=== PATIENT | female | born 1995 | race American Indian/Alaskan Native ===

== ENCOUNTER 2016-10-04 08:50 | Inpatient (IN) | payer OTHER ==
[2016-10-04] MEDS ORDERED: fentaNYL 100 MCG/2 ML SDV IVPUSH PRN (11:36)
[2016-10-04] MEDS ORDERED: Methylergonovine 0.2 MG/1 ML Amp IM PRN (11:36)
[2016-10-04] MEDS ORDERED: Sodium Chloride 0.9% 10 ML Syringe FLUSH PRN (11:36)
[2016-10-04] MEDS ORDERED: Acetaminophen 325 MG Tab PO PRN (11:36)
[2016-10-04] MEDS ORDERED: Nalbuphine 10 MG/1 ML Vial IM PRN (11:36)
[2016-10-04] MEDS ORDERED: Lactated Ringers 500 ML IV ONE (11:36)
[2016-10-04] MEDS ORDERED: Carboprost Tromethamine 250 MCG/1 ML Amp IM PRN (11:36)
[2016-10-04] MEDS ORDERED: Lidocaine 1% 30 ML SDV INJECT PRN (11:36)
[2016-10-04] MEDS ORDERED: Ondansetron 4 MG/2 ML SDV IV PRN (11:36)
[2016-10-04] MEDS ORDERED: Misoprostol 400 MCG (4 X 100 MCG TAB) RECTAL PRN (11:36)
[2016-10-04] MEDS ORDERED: Lactated Ringers 1,000 ML IV SCH (11:45)
[2016-10-04] MEDS ORDERED: Oxytocin/Normal Saline 30 UNIT/500 ML BAG IV SCH ×2 (12:20→14:20)
[2016-10-04] MEDS ORDERED: fentaNYL 100 MCG/2 ML SDV ONE (12:57)
--- NOTE | 2016-10-04 13:24 | PCM.PREANE ---
Preanesthetic Assessment - Procedure Proposed Procedure: Term in labor requesting Intrathecal narcotic for pain - Anesthesia/Transfusion/Family Hx Anesthesia History: No Prior Anesthesia Family History of Anesthesia Reaction: No Transfusion History: No Prior Transfusion(s) Intubation History: Unknown - Review of Systems General: No Symptoms Pulmonary: No Symptoms Cardiovascular: No Symptoms Gastrointestinal: No symptoms Neurological: No Symptoms Other: Reports: None - Physical Assessment NPO Status Date: 10/04/16 NPO Status Time: 12:00 Pulse: 81 O2 Sat by Pulse Oximetry: 98 Respiratory Rate: 14 Blood Pressure: 98/54 Temperature: 97.2 F Vital Signs: Last Vital Signs Temp 98.2 F 10/04/16 10:21 Pulse Resp BP Pulse Ox Height: 1.52 m Weight: 50.802 kg ASA Class: 2 Mental Status: Alert & Oriented x3 Airway Class: Mallampati = 2 Dentition: Reports: Normal Dentition Thyro-Mental Finger Breadths: 3 Mouth Opening Finger Breadths: 3 ROM/Head Extension: Full Lungs: Clear to auscultation, Normal respiratory effort Cardiovascular: Regular Rate, Regular Rhythm - Allergies Allergies/Adverse Reactions: Allergies Allergy/AdvReac Type Severity Reaction Status Date / Time No Known Allergies Allergy Verified 10/21/15 00:24 - Blood Blood Available: No Product(s) Available: None - Anesthesia Plan Pre-Op Medication Ordered: None - Acknowledgements Anesthesia Type Planned: Spinal Pt an Appropriate Candidate for the Planned Anesthesia: Yes Alternatives and Risks of Anesthesia Discussed w Pt/Guardian: Yes Pt/Guardian Understands and Agrees with Anesthesia Plan: Yes Additional Comments: Patient ID's Chart Reviewed. R/B of Intrathecal narcotic is discussed with patient and agreed. Consent is signed. 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 [No Known Home Meds] 07/24/14 [History] . [No Known Home Meds] 10/21/15 [History] - CURRENT (IN HOUSE) MEDS Current Meds: Current Medications Acetaminophen (Tylenol) 650 mg PO Q4H PRN PRN Reason: Pain (Mild 1-3) and fever Carboprost Tromethamine (Hemabate Ds) 250 mcg IM ASDIRECTED PRN PRN Reason: HEMORRHAGE Fentanyl (Sublimaze) 50 mcg IVPUSH Q1H PRN PRN Reason: Pain (moderate 4-6) Lactated Ringer's (Ringers, Lactated) 1,000 mls @ 125 mls/hr IV ASDIRECTED RITU Oxytocin/Sodium Chloride (Pitocin In Ns 30 Unit/500 Ml) 30 unit in 500 mls @ 500 mls/hr IV TITRATE RITU; 500 MUNITS/MIN PRN Reason: Protocol Lidocaine HCl (Xylocaine-Mpf 1%) 10 ml INJECT ASDIRECTED PRN PRN Reason: Perineal Repair Methylergonovine Maleate (Methergine) 0.2 mg IM ASDIRECTED PRN PRN Reason: Hemorrhage Misoprostol (Cytotec) 800 mcg RECTAL ASDIRECTED PRN PRN Reason: Hemorrhage Nalbuphine HCl (Nubain) 20 mg IM ONETIME PRN PRN Reason: Abdominal Pain Ondansetron HCl (Zofran) 4 mg IV Q4H PRN PRN Reason: Nausea/Vomiting Last Admin: 10/04/16 12:51 Dose: 4 mg Sodium Chloride (Saline Flush) 10 ml FLUSH ASDIRECTED PRN PRN Reason: Keep Vein Open Discontinued Medications Fentanyl (Sublimaze) Confirm Administered Dose 100 mcg .ROUTE .STK-MED ONE Stop: 10/04/16 12:58 Lactated Ringer's (Ringers, Lactated) 500 mls @ 999 mls/hr IV .BOLUS ONE Stop: 10/04/16 12:06 Last Admin: 10/04/16 12:32 Dose: 999 mls/hr Sufentanil Citrate (Sufenta) Confirm Administered Dose 50 mcg .ROUTE .STK-MED ONE Stop: 10/04/16 12:58
--- NOTE | 2016-10-04 13:29 | PCM.PRNOTE ---
- Free Text/Narrative Note: Patient ID'd in sitting position L3-4 inner space identified, Sterile prep with Betadine and draped, Skin wheel with 1% lidocaine. 24 G pencan spinal needle advanced into SA space via an 18 G introducer. No blood/parasthesia positive CSF, 6 mg hyperbaric Marcaine + 20 mcg sufentanyl + 30 mcg fentanyl + epinepherine wash + 1.3 ml Preservative free normal saline injected into SA space + swirl x 2. Immediate pain relief is experienced by patient, BP 98/54, HR 81, SpO2 99 on RA, T 97.3 RR 14. Level T8 bilateral with 0 pain score reported by patient.
--- NOTE | 2016-10-04 15:42 | HP ---
CHIEF COMPLAINT: Increased force and frequency of contractions. HISTORY OF PRESENT ILLNESS: The patient is a 21-year-old, 2, para 0-0-1 - 0, currently at 38 and 6/7th weeks of her based on last menstrual period and 8-week ultrasound. Reports contractions pretty much all day yesterday that worsened sometime during the night, and she came in this morning because of some light spotting and continued strong contractions. course has been complicated by first-trimester subchorionic bleed and history of miscarriage x1. Otherwise, fairly unremarkable. The patient has not had any leakage of fluid. She has had only a small amount of spotting. movement has been good. No fever or chills. No chest pain. No shortness of breath. No symptoms of preeclampsia, and generally reports that she is doing well. LABORATORY DATA: Blood type A negative. Antibody screen negative. Rubella nonimmune. RPR nonreactive. Urine culture was negative at 2 days of growth. Hepatitis B negative. HIV negative. Gonorrhea and chlamydia negative. TSH normal. Hepatitis C negative. Wet prep negative. GBS negative. Most recent hemoglobin 11.4 on 07/22/2016. She has had some heartburn in the third trimester and using Zantac for that. She did have her RhoGAM and Tdap vaccinations. The subchorionic hemorrhage resolved without any external bleeding. PAST MEDICAL HISTORY: Body piercing of the belly, tongue, and ears. Intermittent headaches. Menarche at age 13, every 28 days with 3 to 4 days of flow. A history of substance abuse with inpatient treatment and self injury. History of tattoos x3. No IV drug use or blood transfusions. FAMILY HISTORY: Mother and father reportedly alive and well. Sister had a history of intrahepatic cholestasis of . Maternal grandfather with bone cancer and hypertension. Paternal grandmother with hypertension. Paternal grandfather with diabetes, heart attack, and hypertension. Maternal grandmother had a history of having twins and hypertension. Otherwise, family history negative for defects, anesthesia problems, bleeding or clotting disorders, cystic fibrosis and seizures. SOCIAL HISTORY: The patient is single and working at the [employer]. She is a former smoker. Reports alcohol use every once in a while but none during . No indoor pets but she does have a horse. The father of this baby is Matty Esteban Irons. He is reportedly healthy, and this will be his first child as well, he is not involved. MEDICATIONS: vitamin 1 daily, also ranitidine as needed for heartburn. ALLERGIES: No known drug allergies. REVIEW OF SYSTEMS: As per the history of present illness. No headaches, blurry vision, chest pain, shortness of breath, right upper quadrant pain, or increased swelling. No dysuria, constipation, diarrhea, nausea or vomiting, or skin changes. No musculoskeletal complaints other than some mild back pain, so generally negative. PHYSICAL EXAMINATION: General: Tolerating her contractions well. Vital Signs: Blood pressure 113/77, pulse 107, respiratory rate of 18, and she is afebrile. HEENT: Unremarkable. Heart: Regular without obvious murmur. Lungs: Clear to auscultation bilaterally. Abdomen: Gravid. Soft, nontender. Baby is head down. TOCO shows contractions every 2 to 3 minutes sometimes with tripling. heart tones 150 beats per minute at baseline. Moderate [id number] variability. Accelerations noted. Cervix: Per nurse's exam, 2.5 cm, 75%, and vertex. About an hour and a half after that first check, she was 3 cm and 80% effaced. Artificial rupture of membranes performed with return of clear fluid. Extremities: No edema, erythema, or tenderness noted. Skin: Warm, dry, and appropriate for race without rash. Psychiatric: Appropriate for situation and circumstances. ASSESSMENT: 1. Active stage I labor, status post artificial rupture at 11:30 a.m. 2. A 38 and 6/7th weeks by last menstrual period and 8-week ultrasound. 3. 2, para 0-0-1-0. 4. Blood type A negative. 5. Rubella nonimmune. 6. Group B streptococcus negative. 7. Heartburn in the third trimester. 8. History of first trimester subchorionic bleed. 9. Needle phobia. 10.Intermittent headaches. 11.History of x1. PLAN: Anticipate active labor management and anticipate vaginal delivery, however, pending clinical course. Changes may be made if necessary. [facility] /[id number] [facility]
[2016-10-04] MEDS ORDERED: Simethicone 80 MG Tab.Chew PO PRN (18:14)
[2016-10-04] MEDS ORDERED: Measles, Mumps & Rubella Vaccine 0.5 ML SDV SUBCUT ONE (18:14)
[2016-10-04] MEDS ORDERED: Benzocaine/Menthol 20%-0.5% Spray 56 GM Canister TOP PRN (18:14)
[2016-10-04] MEDS: Ibuprofen 800 MG Tab PO PRN (19:54)
[2016-10-04] MEDS: Acetaminophen/HYDROcodone 325-10 MG Tab PO PRN (20:46)
[2016-10-05] MEDS: Acetaminophen/HYDROcodone 325-10 MG Tab PO PRN ×2 (01:01→05:42)
--- NOTE | 2016-10-05 03:49 | DEL ---
DATE: 10/04/2016 PRE-PROCEDURE DIAGNOSES: 1. A 38-6/7th weeks' intrauterine by last menstrual period and 8- week ultrasound. 2. 2 para 0-0-1-0. 3. Blood type A negative. 4. Rubella nonimmune. 5. Group B Streptococcus negative. 6. History of first trimester subchorionic bleed. 7. History of spontaneous x1. 8. Intermittent headaches. 9. Heartburn of . 10.Needle phobia. POSTPROCEDURE DIAGNOSES: 1. Status post spontaneous vaginal delivery, viable male . 2. Bilateral labia minora laceration and first-degree lacerations, repaired without complications. 3. Intrapartum hemorrhage with an estimated blood loss of 500. BRIEF HISTORY: The patient is a 21-year-old, with the above-listed diagnoses, who presented this morning with onset of spontaneous labor. Artificial rupture of membranes performed at 3 cm dilated and intrathecal placed shortly thereafter for pain control. Her contractions however spaced out, and augmentation with Pitocin was performed. After approximately 6 hours of stage I, she pushed for 31 minutes and had a successful vaginal delivery. See admission history and physical for full details. With artificial rupture of membranes, amniotic fluid was noted to be clear. PROCEDURE DETAIL: With the patient in the dorsal lithotomy position, she delivered a viable male infant in DOUG position over intact perineum. The was dried and stimulated. Mouth and nose were bulb suctioned. Baby was placed up on mother's abdomen. After 45 seconds to 1 minute, umbilical cord was doubly clamped and then cut and cord blood sample obtained. Placenta then delivered by gentle cord traction and concomitant uterine massage, inspected and intact, was noted to have a small area of calcification consistent with prior subchorionic bleed. Labia, vagina, and cervix were inspected, and she was noted to have 2 small labia minora lacerations and 1 superficial first-degree perineal laceration, all of which were repaired in a simple running fashion with 4-0 Vicryl without complications. The patient tolerated procedure well. ESTIMATED BLOOD LOSS: 500 mL. COMPLICATIONS: None. FINDINGS: Viable male , weight 2915 grams, 6# 7oz, scores of 8&9. DISPOSITION: Mother and baby to stay together in the room at this time. STEVE /[id number] MTDD
[2016-10-05] MEDS: Ibuprofen 800 MG Tab PO PRN ×2 (03:50→16:29)
--- NOTE | 2016-10-05 06:49 | PCM.POSTAN ---
POST ANESTHESIA ASSESSMENT - MENTAL STATUS Mental Status: alert, oriented - VITAL SIGNS Pulse Rate: 68 SaO2: 99 Resp Rate: 18 Blood Pressure: 120/62 Temperature: 97.1 F - RESPIRATORY Respiratory Status: respiratory rate WNL, airway patent, O2 saturation stable - CARDIOVASCULAR CV Status: pulse rate WNL, blood pressure stable - GASTROINTESTINAL GI Status: no symptoms - PAIN Pain Score: 0 - POST OP HYDRATION Hydration Status: adequate & stable (regained full control of her lower extremities. Ambulating without any issue. Pleased with her anesthesia plan of care.)
[2016-10-05] MEDS: Docusate Sodium 100 MG Cap PO PRN ×2 (08:33→21:40)
[2016-10-05] MEDS: Ferrous Sulfate 325 MG Tab PO SCH (08:33)
[2016-10-05] MEDS: Prenatal Multivitamin with Calcium/Folic Acid/Iron Tab PO SCH (08:33)
[2016-10-05] MEDS ORDERED: fentaNYL 100 MCG/2 ML SDV ITHECAL ONE (10:17)
--- NOTE | 2016-10-05 14:23 | PN ---
DATE: 10/05/2016 SUBJECTIVE: day #1, status post spontaneous vaginal delivery, doing well, ambulating, tolerating regular diet, voiding without difficulties. She has not yet had a bowel movement, is passing flatus. No chest pain or shortness of breath. No symptoms of preeclampsia. No symptoms of infection. Bleeding has been minimal. No other acute concerns. Bottle feeding her baby. OBJECTIVE: General: A healthy, well-appearing 21-year-old female. Vital Signs: Temperature is 97.9; pulse 82; blood pressure 83/64, baseline low 100s over 50s; O2 saturations 100% on room air with a respiratory rate of 18. Heart: Regular without murmur. Lungs: Clear bilaterally with good chest expansion. Abdomen: Soft and nontender. Fundus firm and below the umbilicus. Extremities: No edema, erythema, or tenderness noted. LABORATORY DATA: Shows today's hemoglobin 8.4, down from a previous 9.6. Mild elevation of the white blood cell count to 26,000. ASSESSMENT: 1. Status post spontaneous vaginal delivery day #1. 2. 2, now para 1-0-1-1. 3. Blood type A negative. Baby's blood type O positive. The patient will receive RhoGAM. 4. Rubella nonimmune. The patient received MMR vaccine. 5. History of spontaneous x1. 6. Anemia of and acute blood loss. PLAN: Continue routine cares. Anticipate discharge home tomorrow as long as all continues to go well. The patient's questions have been answered. [facility] /[id number]
[2016-10-06] MEDS: Ibuprofen 800 MG Tab PO PRN ×2 (00:32→12:39)
[2016-10-06 07:23] VITALS: BP 90/56
[2016-10-06] MEDS: Ferrous Sulfate 325 MG Tab PO SCH (08:06)
[2016-10-06] MEDS: Prenatal Multivitamin with Calcium/Folic Acid/Iron Tab PO SCH (08:06)
[2016-10-06] MEDS: Acetaminophen/HYDROcodone 325-10 MG Tab PO PRN ×2 (08:06→12:39)
--- NOTE | 2016-10-06 12:56 | DISCH ---
ADMITTING DIAGNOSES: 1. 38 and 6/7th weeks based on last menstrual period and 8 week ultrasound. 2. 2 para 0-0-1-0. 3. Blood type A negative. 4. Rubella nonimmune. 5. Group B strep negative. 6. Heartburn in the third trimester. 7. History of first trimester subchorionic bleed. 8. Needle phobia. 9. History of spontaneous x1. 10.Frequent headaches. DISCHARGE DIAGNOSES: 1. 38 and 6/7th weeks based on last menstrual period and 8 week ultrasound. 2. 2 now para 1-0-1-1. 3. Blood type A negative. 4. Rubella nonimmune. 5. Group B strep negative. 6. Heartburn in the third trimester. 7. History of first trimester subchorionic bleed. 8. Needle phobia. 9. History of spontaneous x1. 10.Frequent headaches. 11.Status post spontaneous vaginal delivery. 12.Status post immunization of RhoGAM. 13.Status post immunization with MMR vaccine. BRIEF HISTORY: A 21-year-old female, who presented to the hospital with spontaneous onset of labor. After 6 hours in stage I and 31 minute of pushing, she had a successful uncomplicated vaginal delivery of a viable male , weighing 2915 g, 6 pounds 7 ounces. scores of 8 and 9. She has done well since time of delivery. Please see admission history and physical and delivery notes for full details. HOSPITAL COURSE: Good since time of delivery. She has been able to ambulate, tolerate regular diet, voiding without difficulties, passing flatus. No chest pain or shortness of breath. No symptoms of preeclampsia or symptoms of infection. Bleeding has been minimal and she denies other acute concerns. OBJECTIVE: Vital Signs: Temperature is 96.9, pulse of 75, blood pressure 90/56, respiratory rate of 18, O2 saturations 96% on room air. Heart: Regular without murmur. Lungs: Clear to auscultation bilaterally. Abdomen: Soft, nontender. Fundus firm and below the umbilicus. Extremities: No edema, erythema, or tenderness noted. LABORATORY DATA: Admission hemoglobin of 9.8, discharge hemoglobin of 9.1, white blood cell count currently 19.9 which has decreased from 26.1 yesterday. Platelets are normal. No signs of maternal- hemorrhage. Baby's blood type is O positive, which is why she was given a RhoGAM. DISPOSITION: Home with family. MEDICATIONS: 1. Tylenol 650 mg every 6 hours as needed. 2. Ibuprofen 600 mg every 6 hours as needed. 3. Colace 100 mg twice daily as needed for constipation. 4. Iron 325 mg twice daily for 1 month. INSTRUCTIONS: Routine post vaginal delivery instructions provided including to come in if she has any increased pelvic pain, fever, chills, foul-smelling drainage, discharge, increased bleeding, or other acute concerns. Her questions have been answered. FOLLOWUP: 6-week exam will be set up in the clinic. [facility] /[id number]
== END 2016-10-06 14:15 | disposition home or self-care (01) | DRG 775 ==
LOC: DL.OBCHECK 08:50 → DL.OB 11:30 → OBSVTOIN 17:42
PROVIDERS: ADMIT Family Medicine; ATTEND Family Medicine
PROC: 10E0XZZ Delivery of Products of Conception, External Approach (ICD-10-PCS; principal; 2016-10-04)
PROC: 0UQMXZZ Repair Vulva, External Approach (ICD-10-PCS; 2016-10-04)
PROC: 0HQ9XZZ Repair Perineum Skin, External Approach (ICD-10-PCS; 2016-10-04)
PROC: 10907ZC Drainage of Amniotic Fluid, Therapeutic from Products of Conception, Via Natural or Artificial Opening (ICD-10-PCS; 2016-10-04)
PROC: 00HU33Z Insertion of Infusion Device into Spinal Canal, Percutaneous Approach (ICD-10-PCS; 2016-10-04)
PROC: 3E0R3CZ (ICD-10-PCS; 2016-10-04)
DX: O70.0 First degree perineal laceration during delivery (principal); D62 Acute posthemorrhagic anemia; O99.02 Anemia complicating childbirth; D64.89 Other specified anemias; Z3A.39 39 weeks gestation of pregnancy; Z37.0 Single live birth
CPT/HCPCS: 36415; 85025; 85027; 85461; 86850; 86900; 86901; 90707; A9270-GY; J2405; J2590; J2790; J3010; J7120

== ENCOUNTER 2016-11-18 15:43 | Emergency (ER) | payer OTHER ==
[2016-11-18 15:51] VITALS: BP 112/62
[2016-11-18] MEDS ORDERED: predniSONE 20 MG Tab PO ONE (16:45)
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
== END 2016-11-18 16:57 | disposition home or self-care (01) ==
LOC: DL.ED 15:43
DX: L23.7 Allergic contact dermatitis due to plants, except food (principal); F17.210 Nicotine dependence, cigarettes, uncomplicated
CPT/HCPCS: 99282; A9270

== ENCOUNTER 2016-12-27 21:35 | Emergency (ER) | payer OTHER ==
[2016-12-27 21:55] VITALS: BP 115/66
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
== END 2016-12-27 23:34 | disposition home or self-care (01) ==
LOC: DL.ED 21:35
DX: S06.0X0A Concussion without loss of consciousness, initial encounter (principal); S01.01XA Laceration without foreign body of scalp, initial encounter; F41.9 Anxiety disorder, unspecified; F17.210 Nicotine dependence, cigarettes, uncomplicated; W19.XXXA Unspecified fall, initial encounter
CPT/HCPCS: 70450; 81001; 81025; 87086; 87088; 87186; 99284

== ENCOUNTER 2020-06-26 16:49 | Observation (INO) | payer BC ==
[2020-06-26] MEDS ORDERED: Ondansetron 4 MG/2 ML SDV IVPUSH PRN (17:02)
[2020-06-26] MEDS ORDERED: Acetaminophen/HYDROcodone 325-5 MG Tab PO PRN (17:07)
[2020-06-26] MEDS ORDERED: Gentamicin 40 MG/ML 2 ML Vial IV SCH (17:15)
[2020-06-26 17:41] LABS: ANION GAP 17.8 mEq/L (7-13); CHLORIDE,CL 103 mmol/L (98-107); SODIUM,NA 139 mmol/L (136-145)
[2020-06-26] MEDS: Lactated Ringers 1,000 ML IV SCH (18:13)
[2020-06-26] MEDS: Acetaminophen 325 MG Tab PO PRN (18:17)
[2020-06-26] MEDS: Ferrous Sulfate 325 MG Tab PO SCH (18:42)
[2020-06-26] MEDS: Ampicillin 1 GM in Sodium Chloride 0.9% 100 ML IV SCH (20:39)
[2020-06-26] MEDS: Sodium Chloride 0.9% 10 ML Syringe FLUSH PRN (20:39)
[2020-06-27] MEDS: Sodium Chloride 0.9% 10 ML Syringe FLUSH PRN ×3 (00:33→06:10)
[2020-06-27] MEDS: Ampicillin 1 GM in Sodium Chloride 0.9% 100 ML IV SCH ×4 (00:33→17:00)
[2020-06-27] MEDS: Acetaminophen 325 MG Tab PO PRN (01:42)
[2020-06-27] MEDS: Lactated Ringers 1,000 ML IV SCH (06:59)
[2020-06-27] MEDS ORDERED: Prenatal Multivitamin with Calcium/Folic Acid/Iron Tab PO SCH (08:00)
[2020-06-27] MEDS: Ferrous Sulfate 325 MG Tab PO SCH ×2 (08:23→17:29)
[2020-06-27 17:18] VITALS: BP 112/70; PULSE 74
--- NOTE | 2020-07-04 07:39 | DISCH ---
ADMITTING DIAGNOSES: 1. Pyelonephritis affecting in the 3rd trimester. 2. Anomaly of the heart. 3. Abnormal quad screen. 4. Smoking within the past year. 5. Two prior miscarriages. 6. Gestational proteinuria. 7. Anemia of . 8. Coronavirus disease 2019 affecting in January and recurrent positive upon admission. 9. Vitamin D deficiency. 10.History of depression. 11.High-risk in the 3rd trimester. BRIEF HISTORY: A 25-year-old 5, para 2-0-2-2, who presented to the clinic with urinary tract infection complaints and was ultimately diagnosed with pyelonephritis. Diagnosis was complicated by the fact that she had an outside urinalysis that was positive and she was started on Keflex on 06/24/2020, but developed hives and was switched to Augmentin. However, she did not take the Augmentin for fear of possible allergic reaction and her symptoms became worse. No fever, chills. No nausea or vomiting. However, with the antibiotic failures and the severity of her symptoms where she could not even sit on the examination table were concerning. Therefore, she was admitted to the hospital for further observation, pain management, and IV antibiotics. HOSPITAL COURSE: Has been good. The patient has tolerated her antibiotics well. Back pain has been controlled with Tylenol. She preferred not to take the hydrocodone that was made available to her. She did make use of heating pad. Upon admission, she did have a positive COVID test, but she was asymptomatic from that standpoint, and once the urinary tract infection symptoms were feeling better, we felt it was safe for her to be discharged home. DISCHARGE CONDITION: Good. PHYSICAL EXAMINATION: Vital Signs: Temperature is 98.6, pulse 74, blood pressure 112/70, respiratory rate of 16, and O2 saturations 98% on room air. Heart: Regular without murmur. Lungs: Clear to auscultation bilaterally. Abdomen: Gravid, soft, nontender. Positive bowel sounds. NSTs have all been category 1 without significant contractions. Extremities: No edema, erythema, or tenderness noted. LABORATORY DATA: White blood cell count was only 9.9, platelets are normal at 251. Chemistry remarkable for a low calcium of 8.4 and low albumin of 2.7. COVID positive RNA swab. Urinalysis at the clinic was overall unremarkable, but it was noted the patient had previous positive urinalysis and cultures at an outside facility and those results were not available to me. DISPOSITION: Home with family. MEDICATIONS: She is to go ahead and fill her Augmentin prescription and complete the 10-day course of that. Otherwise, vitamin 1 p.o. daily, calcium carbonate as needed for acid reflux, Pepcid 20 mg twice daily as needed for acid reflux, and Tylenol 1000 mg every 6 hours as needed for pain. FOLLOWUP: She should keep her routine OB followup appointments as she has scheduled, and will see her back if needed should any problems or concerns arise. She is scheduled for induction on 07/06/2020, in [place] so that they can perform the baby's echocardiogram within 24 to 48 hours of life and will continue that plan. She does have a history of rapid delivery, so if she does go into labor, she may end up coming to deliver at our local hospital and then we can DICTATION ENDS HERE. [facility] /[id number]
== END 2020-06-27 18:15 | disposition home or self-care (01) ==
LOC: DL.MS 16:49
PROVIDERS: ADMIT Family Medicine; ATTEND Family Medicine
DX: O98.513 Other viral diseases complicating pregnancy, third trimester (principal); U07.1 COVID-19; O23.03 Infections of kidney in pregnancy, third trimester; N12 Tubulo-interstitial nephritis, not specified as acute or chronic; O26.893 Other specified pregnancy related conditions, third trimester; O09.893 Supervision of other high risk pregnancies, third trimester; F33.2 Major depressive disorder, recurrent severe without psychotic features; E55.9 Vitamin D deficiency, unspecified; O99.013 Anemia complicating pregnancy, third trimester; O12.13 Gestational proteinuria, third trimester; O35.8XX0 Maternal care for other (suspected) fetal abnormality and damage, not applicable or unspecified; Z87.891 Personal history of nicotine dependence; Z3A.36 36 weeks gestation of pregnancy
CPT/HCPCS: 36415; 59025; 80053; 85025; 87635; 96365; 96366; 96367; 96376; A9270; G0378; J0290; J1580; J7120; U0002

== ENCOUNTER 2021-11-17 23:14 | Emergency (ER) | payer BC ==
[2021-11-17 23:41] VITALS: BP 120/88
[2021-11-17] MEDS: Sodium Chloride 0.9% 1,000 ML IV ONE (23:54)
[2021-11-17] MEDS: Ketorolac 30 MG/ML SDV IVPUSH ONE (23:55)
[2021-11-17] MEDS: Ondansetron 4 MG/2 ML SDV IVPUSH ONE (23:56)
[2021-11-17] MEDS: diphenhydrAMINE 50 MG/ML SDV IVPUSH ONE (23:57)
[2021-11-18 00:32] VITALS: PULSE 70
== END 2021-11-18 00:32 | disposition home or self-care (01) ==
LOC: DL.ED 23:14
DX: G43.909 Migraine, unspecified, not intractable, without status migrainosus (principal); Z88.1 Allergy status to other antibiotic agents; Z86.16 Personal history of COVID-19; Z20.822 Contact with and (suspected) exposure to COVID-19
CPT/HCPCS: 81001; 96361; 96374; 96375; 99282; 99284-25; J1200; J1885; J2405; J7030; U0002

== ENCOUNTER 2021-11-20 10:24 | Emergency (ER) | payer BC ==
[2021-11-20 10:39] VITALS: BP 123/90; PULSE 79
[2021-11-20] MEDS ORDERED: Sodium Chloride 0.9% 10 ML Syringe FLUSH PRN (11:03)
[2021-11-20] MEDS ORDERED: Sodium Chloride 0.9% 1,000 ML IV ONE (11:04)
[2021-11-20] MEDS ORDERED: Lidocaine 1% 5 ML VIAL INJECT ONE (11:08)
[2021-11-20] MEDS ORDERED: Metoclopramide 10 MG/2 ML SDV IVPUSH ONE (11:08)
[2021-11-20] MEDS ORDERED: Ketorolac 30 MG/ML SDV IVPUSH ONE (11:08)
[2021-11-20] MEDS ORDERED: Dexamethasone 4 MG/ML SDV IVPUSH ONE (13:02)
== END 2021-11-20 13:37 | disposition home or self-care (01) ==
LOC: DL.ED 10:24
DX: G43.809 Other migraine, not intractable, without status migrainosus (principal); F17.210 Nicotine dependence, cigarettes, uncomplicated; Z88.1 Allergy status to other antibiotic agents; Z86.16 Personal history of COVID-19
CPT/HCPCS: 36415; 70450; 80053; 84443; 85025; 96361; 96374; 96375; 99283; 99284-25; J1100; J1885; J2765; J3490; J7030

== ENCOUNTER 2023-07-19 10:46 | Emergency (ER) | payer BC, OTHER ==
[2023-07-19 11:01] VITALS: BP 126/86; PULSE 135
[2023-07-19 11:39] LABS: BASOPHILS PERCENT AUTO 0.1 % (0.0-1.0); EOSINOPHILS PERCENT AUTO 0.6 % (1.0-3.0); HEMATOCRIT 43.1 % (37.0-47.0); HEMOGLOBIN 14.6 g/dL (12.0-16.0); LYMPHOCYTES PERCENT AUTO 9.9 % (20.5-50.1); MEAN CORPUSCULAR HEMOGLOBIN 30.3 pg (27.0-34.0); MEAN CORPUSCULAR HGB CONC 33.9 g/dL (33.0-35.0); MEAN CORPUSCULAR VOLUME 89.4 fL (80-100); MONOCYTES PERCENT AUTO 8.1 % (2-8); NEUTROPHILS PERCENT AUTO 81.3 % (42.2-75.2); PLATELET COUNT,PLT 262 10^3/uL (150-450); RED BLOOD CELL COUNT 4.82 10^6/uL (4.2-5.4); WHITE BLOOD CELL COUNT,WBC 16.3 10^3/uL (5.0-10.0)
[2023-07-19] MEDS: Sodium Chloride 0.9% 1,000 ML IV ONE (11:39)
[2023-07-19] MEDS: Ondansetron 4 MG/2 ML SDV IVPUSH ONE (11:40)
[2023-07-19] MEDS: Ketorolac 30 MG/ML SDV IVPUSH ONE (11:40)
[2023-07-19 11:50] LABS: POTASSIUM,K 3.8 mmol/L (3.5-5.1); SODIUM,NA 138 mmol/L (136-145)
[2023-07-19 12:01] LABS: LACTIC ACID 1.8 mmol/L (0.4-2.0)
[2023-07-19 12:08] LABS: A/G RATIO 1.2; ALANINE AMINOTRANSFERASE,ALT 23 U/L (14-59); ALBUMIN 4.4 g/dL (3.4-5.0); ALKALINE PHOSPHATASE 91 U/L (46-116); ANION GAP 15.8 mEq/L (7-13); ASPARTATE AMNIOTRANSFERASE,AST 9 U/L (15-37); BILIRUBIN TOTAL 0.3 mg/dL (0.2-1.0); BLOOD UREA NITROGEN,BUN 9 mg/dL (7-18); BUN/CREATININE RATIO 14.1 (No establ ref range); CALCIUM 9.2 mg/dL (8.5-10.1); CARBON DIOXIDE,CO2 24 mmol/L (21-32); CHLORIDE,CL 102 mmol/L (98-107); CREATININE 0.64 mg/dL (0.55-1.02); EST CRCL DRUG DOSING (CG) 97.87 mL/min; GLUCOSE RANDOM 98 mg/dL (70-99); LIPASE 29 U/L (16-77); PROTEIN TOTAL,TP 8.1 g/dL (6.4-8.2)
[2023-07-19 12:09] LABS: ESTIMATED GFR 123 mL/min (>=60)
[2023-07-19 12:20] LABS: HCG QUALITATIVE,SERUM NEGATIVE (NEGATIVE)
[2023-07-19] MEDS: Iopamidol 612 MG/ML 100 ML Bottle IVPUSH ONE (12:59)
[2023-07-19] MEDS: GI Cocktail Oral Solution 30 ML PO ONE (13:50)
== END 2023-07-19 14:49 | disposition home or self-care (01) ==
LOC: DL.ED 10:46
DX: R10.13 Epigastric pain (principal); R19.7 Diarrhea, unspecified; R10.11 Right upper quadrant pain; R10.31 Right lower quadrant pain; F17.210 Nicotine dependence, cigarettes, uncomplicated; Z88.1 Allergy status to other antibiotic agents; Z86.16 Personal history of COVID-19
CPT/HCPCS: 36415; 74177; 80053; 83605; 83690; 84703; 85025; 96361; 96374; 96375; 99284; A9270; J1885; J2405; J7030; Q9967

== ENCOUNTER 2024-12-16 17:40 | Emergency (ER) | payer BC, OTHER ==
[2024-12-16] MEDS: Take Home: Amoxicillin 500 MG, 6 Cap Pack PO ONE (18:35)
[2024-12-16] MEDS: Dexamethasone 4 MG/ML SDV IM ONE (18:35)
[2024-12-16 18:42] VITALS: BP 120/70; PULSE 120
== END 2024-12-16 18:39 | disposition home or self-care (01) ==
LOC: DL.ED 17:40
DX: J02.0 Streptococcal pharyngitis (principal); Z88.1 Allergy status to other antibiotic agents; Z79.899 Other long term (current) drug therapy
CPT/HCPCS: 87430; 96372; 99283; A9270; J1100